=== PATIENT | male | born 1935 | race Two or more races ===

== ENCOUNTER 2021-02-26 14:57 | Outpatient (REF) | payer MEDICAID, SELFPAY ==
--- NOTE | 2021-02-26 16:09 | MHC.AU.AHA ---
Adult Audiological Evaluation Date of Visit: 02/26/21 [employer] Machine Feeder Used: Family member provided Portugese translation Reason for Appointment: Audiological re-evaluation to monitor the status of Mr. Cochran's hearing loss. He has a known asymmetrical, sensorineural hearing loss with the right ear hearing worse than the left. He uses a CROS hearing aid system. He denies any significant changes to his hearing or medical history since his last visit. [place] [facility] [place] Mild dropping to severe SNHL in the left ear. Moderate dropping to profound SNHL in the right ear. Medical History: Medical History:Heart Problems, High Blood Pressure, Thyroid Disease, Pacemaker, high cholesterol Hearing Instrument History- Right Ear: Ceo: Phonak Model: CROS B-312 Serial Number: [id number] Battery Size: 312 Repair Warranty: 06/26/2021 Loss and Damage Warranty: 06/26/2021 Dispensed By: [facility] Date of Fittin04/04/2018 Hearing Instrument History- Left Ear: Ceo: Phonak Model: Bolero B50-M Serial Number: [id number] Battery Size: 312 Warranty: 06/26/2021 Loss and Damage Warranty: 06/26/2021 Dispensed By: [facility] Date of Fittin04/04/2018 Otoscopy: Right Ear: Unremarkable Left Ear: Unremarkable Tympanometry: Tympanometry performed due to: To assess integrity of the middle ear system Right Ear: Normal Middle Ear System (Type A) Left Ear: Normal Middle Ear System (Type A) Hearing Evaluation: Transducer(s) Used: Insert Earphones, Bone Conduction Method: Conventional Audiometry Stimuli Used: Pure Tones Right Ear: Description of Hearing: Moderate sloping to profound sensorineural hearing loss from 250-8000 Hz. Left Ear: Description of Hearing: Mild hearing loss at 250 Hz, rising to normal hearing from 500-1500 Hz, and sloping to a moderate to severe sensorineural hearing loss from 3971-6093 Hz. Speech Recognition Threshold (SRT): Method Used: Not performed at today's visit as patient's primary language is Mauritian. Word Discrimination: Method: Not performed at today's visit as patient's primary language is Mauritian. Comparison: Compared to the most recent evaluation: Hearing is stable. Recommendations: Audiological re-evaluation in one year. Hearing aid maintenance performed today. Diagnosis: Primary Diagnosis: H90.3 Bilateral Sensorineural Hearing Loss Services Performed: Pure Tone- Air & Bone (CPT 44419) Tympanometry (CPT 07181) Signature: Provider: Lorena Huber, CCC-A
== END 2021-02-26 14:58 | disposition home or self-care (01) ==
LOC: HO.SH 14:57
PROVIDERS: Visit Provider Physician Assistant Medical
DX: H90.3 Sensorineural hearing loss, bilateral (principal)
CPT/HCPCS: 92553; 92567; 92593; V5266

== ENCOUNTER 2022-04-06 12:29 | Outpatient (REF) | payer MEDICAID, SELFPAY ==
--- NOTE | 2022-04-15 16:10 | MHC.AU.AHA ---
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 Maldonado has a histoyr of asymmetric hearing loss and uses a BI-CROS hearing aid system. Previous Hearing Test Results: 02/26/2021 [facility] Left Ear - Borderline normal hearing thresholds 250-1500 Hz, dropping to a severe high frequency sensorineural hearing loss. Right Ear - Moderate sloping to profound sensorineural hearing loss Medical History: Medical History: Heart Problems, High Blood Pressure, Thyroid Disease, Pacemaker, high cholesterol Medication List: Xarelto, Omeprazole, Tamsulosin, Asprin, Levothyroxine, Atenolol, Atorvastatin, Amlodipine Hearing Instrument History- Right Ear: [employer]: Phonak Model: CROS B-312 Serial Number: [id number] Battery Size: 312 Repair Warranty: 06/26/2021 Loss and Damage Warranty: 06/26/2021 Dispensed By: [facility] Date of Fittin04/04/2018 Hearing Instrument History- Left Ear: Epic [employer]: Phonak Model: Bolero B50-M Serial Number: [id number] Battery Size: 312 Warranty: 06/26/2021 Loss and Damage Warranty: 06/26/2021 Dispensed By: [facility] Date of Fittin04/04/2018 Otoscopy: Right Ear: Small amount of non-occluding cerumen Left Ear: Small amount of non-occluding cerumen Tympanometry: Tympanometry performed due to: To assess integrity of the middle ear system Right Ear: Normal Middle Ear System (Type A) Left Ear: Hypercompliant Middle Ear System (Type Ad) Hearing Evaluation: Transducer(s) Used: Insert Earphones Bone Conduction Method: Conventional Audiometry Stimuli Used: Pure Tones Right Ear: Description of Hearing: Moderate sloping to profound sensorineural hearing loss Left Ear: Description of Hearing: Borderline normal hearing to mild loss at 250-1500 Hz, dropping to a severe high frequency sensorineural hearing lsos Speech Recognition Threshold (SRT): Method Used: Not performed at today's visit due to language barrier Word Discrimination: Method: Not performed at today's visit due to language barrier Comparison: Compared to the most recent evaluation: Hearing is stable. Recommendations: Audiological re-evaluation in one year. Will send a reminder card. Hearing aid maintenance performed today. Continue and consistent use of the BI-CROS hearing aid system Diagnosis: Primary Diagnosis: H90.3 Bilateral Sensorineural Hearing Loss Services Performed: Pure Tone- Air & Bone (CPT 57307) Tympanometry (CPT 55978) Signature: Provider: Lorena Rico, CCC-A
== END 2022-04-06 12:30 | disposition home or self-care (01) ==
LOC: HO.SH 12:29
PROVIDERS: Visit Provider Internal Medicine
DX: Z01.118 Encounter for examination of ears and hearing with other abnormal findings (principal); Z46.1 Encounter for fitting and adjustment of hearing aid; H90.3 Sensorineural hearing loss, bilateral
CPT/HCPCS: 92553; 92567; V5266